=== PATIENT | male | born 1975 | race Caucasian/White ===

== ENCOUNTER 2016-11-15 23:02 | Emergency (ER) | payer OTHER ==
[2016-11-15 23:15] VITALS: BP 129/78
[2016-11-15] MEDS ORDERED: Ibuprofen 600 MG Tab PO ONE (23:41)
--- NOTE | 2016-11-16 00:14 | EDM.PDOC ---
ED HPI GENERAL MEDICAL PROBLEM - General Chief Complaint: Lower Extremity Injury/Pain Stated Complaint: INJURED LEFT FOOT Time Seen by Provider: 11/15/16 23:30 Source of Information: Reports: Patient, RN Notes Reviewed History Limitations: Reports: No Limitations - History of Present Illness INITIAL COMMENTS - FREE TEXT/NARRATIVE: The patient states that he dropped approximate 400 pound steel lid onto his left foot around 20:00 tonight, at work. He was wearing steel toed boots, but the lid struck over his first metatarsal. He states that he did not have significant pain initially, but pain has increased since, and when he removed his socks a few hour later, he had significant pain. No prior left foot injury. The patient does not have a PCP. Left Feet Pain Score (Numeric/FACES): 5 - Related Data Allergies Allergy/AdvReac Type Severity Reaction Status Date / Time celecoxib [From Celebrex] Allergy Hives Verified 11/15/16 23:15 ciprofloxacin Allergy Hives Verified 11/15/16 23:15 Home Meds: Home Meds Dextroamphetamine Sulfate [Dexedrine] 10 mg PO DAILY 11/15/16 [History] Meloxicam, Submicronized [Vivlodex] 10 mg PO DAILY 11/15/16 [History] Past Medical History Musculoskeletal History: Reports: Osteoarthritis Psychiatric History: Reports: ADHD - Infectious Disease History Infectious Disease History: Reports: Chicken Pox - Past Surgical History HEENT Surgical History: Reports: Oral Surgery (wisdom teeth extraction) Musculoskeletal Surgical History: Reports: Shoulder Surgery (right open, left arthroscopic) Social & Family History - Tobacco Use Smoking Status *Q: Light Tobacco Smoker Years of Tobacco use: 20 Packs/Tins Daily: 0.4 - Caffeine Use Caffeine Use: Reports: None - Alcohol Use Alcohol Use History: Yes Alcohol Use Frequency: Socially - Recreational Drug Use Recreational Drug Use: No - Living Situation & Occupation Living situation: Reports: , with Spouse Occupation: Employed (manufacturing applications engineer) Review of Systems - Review of Systems Review Of Systems: See Below Constitutional: Reports: No Symptoms Eyes: Reports: No Symptoms Ears: Reports: No Symptoms Nose: Reports: No Symptoms Mouth/Throat: Reports: No Symptoms Respiratory: Reports: No Symptoms Cardiovascular: Reports: No Symptoms GI/Abdominal: Reports: No Symptoms Genitourinary: Reports: No Symptoms Musculoskeletal: Reports: No Symptoms Skin: Reports: No Symptoms Neurological: Reports: No Symptoms Psychiatric: Reports: No Symptoms ED EXAM, GENERAL - Physical Exam Exam: See Below Exam Limited By: No Limitations General Appearance: Alert, WD/WN, No Apparent Distress Extremities: Other (mild swelling and erythema to the dorsum of the left foot, over the first metatarsal. this area is quite tender to palpation, however, there is no tenderness to palpation of the plantar aspect of the foot. Pain is not induced to dorsiflexion of the first or second toes, even against resistance. Neurovascular status of the left foot is intact.) Course - Vital Signs Last Recorded V/S: Last Vital Signs Temp 36.3 C 11/15/16 23:10 Pulse 80 11/15/16 23:10 Resp 20 11/15/16 23:10 BP 129/78 11/15/16 23:10 Pulse Ox 94 L 11/15/16 23:10 - Orders/Labs/Meds Orders: Active Orders 24 hr Category Date Time Status Foot Comp Min 3V Lt [CR] Stat Exams 11/15/16 23:40 Taken Foot wo Cont Lt [CT] Stat Exams 11/16/16 00:14 Taken Meds: Medications Discontinued Medications Generic Name Dose Route Start Last Admin Trade Name Freq PRN Reason Stop Dose Admin Ibuprofen 600 mg 11/15/16 23:41 11/15/16 23:49 Motrin PO 11/15/16 23:42 600 mg ONETIME ONE Administration - Re-Assessments/Exams Free Text/Narrative Re-Assessment/Exam: 11/16/16 00:08 4-view radiographs of the left foot shows a possible irregularity of the cuneiform bone. I am unable to exclude a fracture. The remainder of foot appears to be normal, with no fractures or dislocations identified. Formal read per the Radiologist pending. 11/16/16 00:14 X-ray results discussed with the patient. While the patient's injury is over his first metatarsal, not the cuneiform, and he does not have tenderness to palpation over the cuneiform, I offered the patient a CT scan of his foot to be certain that there is no fracture, and the patient has accepted. I have ordered a CT scan of the left foot. 11/16/16 02:03 CT of the left foot without contrast is read by [facility] as "No evidence of fracture. Subcutaneous edema." 11/16/16 02:06 CT results discussed with the patient. As above, no bony injury. He appears to have contused his foot. Clinically, there is no tendinous injury, as the patient is able to dorsiflex his toes without difficulty, and without pain. I will have the patient elevate and ice his foot is much as possible over the weekend, and take [id number] ibuprofen as needed for discomfort. Departure - Departure Time of Disposition: 02:07 Disposition: Home, Self-Care 01 Condition: Good Clinical Impression: Contusion of left foot - Discharge Information Referrals: PCP,None [Primary Care Provider] - Forms: ED Department Discharge Additional Instructions: You were seen in the emergency room after a heavy weight fell on your left foot. Workup in the ER included x-rays and a CT scan of your left foot. The CT scan confirms that no bones are broken or dislocated. There are no tendinous injuries. You have essentially bruised the back of your foot. We recommend that you elevate and ice your foot as much as possible over the weekend, and take [id number] ibuprofen as needed for discomfort. If any other problems, please do not hesitate to return to the ER. - My Orders Last 24 Hours: My Active Orders 11/15/16 23:40 Foot Comp Min 3V Lt [CR] Stat 11/16/16 00:14 Foot wo Cont Lt [CT] Stat - Assessment/Plan Last 24 Hours: My Active Orders 11/15/16 23:40 Foot Comp Min 3V Lt [CR] Stat 11/16/16 00:14 Foot wo Cont Lt [CT] Stat
--- NOTE | 2016-11-18 10:26 | CR ---
Left foot: Four views of the left foot were obtained. Comparison: No prior foot study. Small plantar spur is seen. Joint spaces are preserved. No fracture, dislocation or other bony abnormality is seen. Impression: 1. Plantar spur. 2. Nothing acute is identified on left foot exam. Diagnostic code #2
--- NOTE | 2016-11-18 12:21 | CT ---
CT left foot Technique: Multiple axial sections were obtained of the left foot. Reconstructed sagittal and coronal images were reviewed. Findings: Joint spaces within the left foot are maintained. Plantar spur is noted. Minimal spur is noted posteriorly off the calcaneus at the insertion of the Achilles tendon. No fracture or dislocation is seen. Soft tissue swelling is noted. Impression: 1. Small calcaneal spurs and soft tissue swelling. 2. No acute bony abnormality is identified. Diagnostic code #2 I agree with preliminary report issued by [facility] ([facility] preliminary report dictated on 11/16/16, 2:34 AM Central Time) [facility] CENTERReggie
== END 2016-11-16 02:46 | disposition home or self-care (01) ==
LOC: JD.ED 23:02
DX: S90.32XA Contusion of left foot, initial encounter (principal); M19.90 Unspecified osteoarthritis, unspecified site; F17.210 Nicotine dependence, cigarettes, uncomplicated; Z88.1 Allergy status to other antibiotic agents; Z79.899 Other long term (current) drug therapy; W20.8XXA Other cause of strike by thrown, projected or falling object, initial encounter; Y99.0 Civilian activity done for income or pay
CPT/HCPCS: 73630; 73700; 99284; A9270; 99283